=== PATIENT | female | born 1965 | race Caucasian/White ===

== ENCOUNTER 2022-12-20 17:53 | Emergency (ER) | payer MEDICARE, MEDICAID ==
[~2022-12-20] VITALS: Ht 152.4 cm; Wt 50.8 kg
[2022-12-20 17:54] VITALS: BP 127/66
[2022-12-20] MEDS ORDERED: CELE1CAP9 PO ×2 (18:07→18:28)
[2022-12-20] MEDS ORDERED: BUPR-69 PO (18:07)
[2022-12-20] MEDS ORDERED: TRAZ-257 PO (18:07)
[2022-12-20] MEDS ORDERED: DULO1CAP6 PO (18:07)
[2022-12-20] MEDS ORDERED: PANT40TA29 PO ×2 (18:07→18:28)
[2022-12-20] MEDS ORDERED: ALEN70TA82 PO ×2 (18:09→18:28)
[2022-12-20] MEDS ORDERED: TRAZ1TAB12 PO (18:28)
== END 2022-12-20 18:53 | disposition home or self-care (01) ==
LOC: M ED 17:53
DX: Z76.0 Encounter for issue of repeat prescription (principal); J44.9 Chronic obstructive pulmonary disease, unspecified; K21.9 Gastro-esophageal reflux disease without esophagitis; Z88.6 Allergy status to analgesic agent; Z79.83 Long term (current) use of bisphosphonates; Z79.1 Long term (current) use of non-steroidal anti-inflammatories (NSAID); Z79.899 Other long term (current) drug therapy

== ENCOUNTER → 2023-07-18 | Outpatient (REF) | payer MEDICARE, MEDICAID ==
[~2023-07-18] MED LIST: ALEN70TA82 PO; BUPR-69 PO; CELE0.09 PO; DULO1CAP6 PO; PANT40TA29 PO; TRAZ-257 PO; TRAZ1TAB12 PO
[2023-07-18 19:08] LABS: ALBUMIN 3.6 G/DL (3.2-5.2); ALKALINE PHOSPHATASE 97 U/L (46-116); ALT/SGPT 19 U/L (7.0-40); AST/SGOT 19 U/L (<34); BILIRUBIN,TOTAL 0.2 MG/DL (0.3-1.2); BLOOD UREA NITROGEN 10 MG/DL (9-23); CALCIUM LEVEL 9.2 MG/DL (8.5-10.1); CARBON DIOXIDE LEVEL 32 MMOL/L (20-31); CHLORIDE LEVEL 102 MMOL/L (98-107); CHOLESTEROL LEVEL 224 MG/DL (<200); CHOLESTEROL RISK RATIO 4.53 (<5); CREATININE FOR GFR 0.78 MG/DL (0.55-1.30); GLOMERULAR FILTRATION RATE > 60.0 (>51); GLUCOSE, FASTING 87 MG/DL (60-100); HDL CHOLESTEROL 49.4 MG/DL (>40); LDL CHOLESTEROL 143.2 MG/DL (<100); NON-HDL-C 174.6 MG/DL; POTASSIUM SERUM 4.7 MMOL/L (3.5-5.1); SODIUM LEVEL 140 MMOL/L (136-145); TRIGLYCERIDES LEVEL 157 MG/DL (<150)
[2023-07-18 19:10] LABS: TOTAL 25(OH) VITAMIN D 44.9 NG/ML (20.0-100.0)
[2023-07-18 19:16] LABS: HEMOGLOBIN A1c 5.1 % (4.0-6.0)
[2023-07-18 19:40] LABS: HEPATITIS C VIRUS ABY INDEX 0.05 INDEX (<0.8)
== END ==
LOC: M PLALAB 18:02
PROVIDERS: ATTEND Family Medicine
DX: Z13.6 Encounter for screening for cardiovascular disorders (principal); Z11.9 Encounter for screening for infectious and parasitic diseases, unspecified; M81.0 Age-related osteoporosis without current pathological fracture; Z79.899 Other long term (current) drug therapy

== ENCOUNTER → 2023-08-08 | Outpatient (CLI) | payer MEDICARE, MEDICAID | LOC: M WHC 16:04 | PROVIDERS: ATTEND Family Medicine | DX: Z12.31 Encounter for screening mammogram for malignant neoplasm of breast (principal); R92.323 Mammographic fibroglandular density, bilateral breasts ==

== ENCOUNTER → 2023-10-19 | Outpatient (REF) | payer MEDICARE, MEDICAID | LOC: M SFHCWAGY 18:01 | PROVIDERS: ATTEND Family Medicine | DX: Z12.4 Encounter for screening for malignant neoplasm of cervix (principal) | CPT/HCPCS: 87624; G0123 ==

== ENCOUNTER 2023-11-06 08:36 | Day surgery (SDC) | payer MEDICARE, MEDICAID ==
[~2023-11-06] VITALS: Ht 152.4 cm; Wt 50.8 kg
[~2023-11-06 08:36] MED LIST changes: +ACET-897 PO; +BUPR150T12 PO; +CALC1CAP34 PO; +FOLI400T5 PO; +PREVAGEN PO
[2023-11-06] MEDS: NS 1,000 ML IV ONE (08:54)
[2023-11-06] MEDS ORDERED: LIDOCAINE 2% 100MG/5ML SDV (FOR ANES.) As Ordered ONE (10:00)
[2023-11-06] MEDS ORDERED: propofoL 200 MG/20 ML VIAL As Ordered ONE (10:00)
[2023-11-06 10:48] VITALS: TEMP 97
[2023-11-06 11:04] VITALS: BP 101/50; O2SAT 98
== END 2023-11-06 11:08 | disposition home or self-care (01) ==
LOC: M OPP 08:36
PROVIDERS: ATTEND Internal Medicine Gastroenterology
DX: Z12.11 Encounter for screening for malignant neoplasm of colon (principal); K64.4 Residual hemorrhoidal skin tags; K64.8 Other hemorrhoids; K29.70 Gastritis, unspecified, without bleeding; K44.9 Diaphragmatic hernia without obstruction or gangrene; R13.10 Dysphagia, unspecified; F17.200 Nicotine dependence, unspecified, uncomplicated; Z79.1 Long term (current) use of non-steroidal anti-inflammatories (NSAID); Z79.83 Long term (current) use of bisphosphonates; Z79.899 Other long term (current) drug therapy; Z88.6 Allergy status to analgesic agent
CPT/HCPCS: 43239; 43249; 88305; G0121

== ENCOUNTER 2024-04-17 17:13 | Emergency (ER) | payer MEDICARE, MEDICAID ==
[~2024-04-17] VITALS: Ht 152.4 cm; Wt 53.6 kg
[2024-04-17] MEDS ORDERED: SUCR1TAB56 (17:37)
[2024-04-17 18:50] VITALS: BP 140/96; TEMP 96.9; O2SAT 99
== END 2024-04-17 19:43 | disposition left against medical advice (07) ==
LOC: M ED 17:13
DX: Z53.21 Procedure and treatment not carried out due to patient leaving prior to being seen by health care provider (principal)

== ENCOUNTER → 2024-12-19 | Outpatient (CLI) | payer MEDICARE, MEDICAID ==
[~2024-12-19] MED LIST changes: +SUCR1TAB56
== END ==
LOC: M WHC 14:26
PROVIDERS: ATTEND Registered Nurse
DX: Z12.31 Encounter for screening mammogram for malignant neoplasm of breast (principal); Z13.820 Encounter for screening for osteoporosis; R92.323 Mammographic fibroglandular density, bilateral breasts; M85.89 Other specified disorders of bone density and structure, multiple sites

== ENCOUNTER → 2024-12-31 | Outpatient (CLI) | payer MEDICARE, MEDICAID | LOC: M RAD 15:23 | PROVIDERS: ATTEND Registered Nurse | DX: R91.8 Other nonspecific abnormal finding of lung field (principal); F17.210 Nicotine dependence, cigarettes, uncomplicated ==

== ENCOUNTER → 2025-01-14 | Outpatient (CLI) | payer MEDICARE, MEDICAID ==
[2025-01-14 15:08] LABS: BASO # 0.1 10^3/uL (0.0-0.2); EOS # 0.2 10^3/uL (0.0-0.5); HEMATOCRIT 39.5 % (36.0-47.0); HEMOGLOBIN 12.7 g/dl (12.0-15.5); LYMPH # 1.9 10^3/uL (1.5-5.0); LYMPH % 33.1 % (24.0-44.0); MEAN CORPUSCULAR HEMOGLOBIN 30.5 pg (27.0-33.0); MEAN CORPUSCULAR HGB CONC 32.2 g/dl (32.0-36.5); MEAN CORPUSCULAR VOLUME 94.7 fl (80.0-96.0); MONO # 0.6 10^3/uL (0.0-0.8); MONO % 9.5 % (2.0-8.0); NEUTROPHILS % 52.2 % (36.0-66.0); PLATELET COUNT, AUTOMATED 269 10^3/uL (150-450); RED BLOOD COUNT 4.17 10^6/uL (4.00-5.40); WHITE BLOOD COUNT 5.8 10^3/uL (4.0-10.0)
[2025-01-14 15:23] LABS: ALBUMIN 3.5 G/DL (3.2-5.2); BILIRUBIN,TOTAL 0.3 MG/DL (0.3-1.2); CALCIUM LEVEL 9.5 MG/DL (8.3-10.6); CHOLESTEROL RISK RATIO 4.7 (<5); CREATININE FOR GFR 0.79 MG/DL (0.55-1.30); GLOMERULAR FILTRATION RATE 85.6 (>45); HDL CHOLESTEROL 54.2 MG/DL (>40); LDL CHOLESTEROL 180.8 MG/DL (<100); NON-HDL-C 200.8 MG/DL; POTASSIUM SERUM 3.9 MMOL/L (3.5-5.1); TOTAL PROTEIN 6.9 G/DL (5.7-8.2)
[2025-01-14 15:24] LABS: FREE T4 1.03 NG/DL (0.89-1.76)
[2025-01-14 15:25] LABS: THYROID STIMULATING HORMONE 1.676 uIU/ML (0.55-4.78)
== END ==
LOC: M WUC 13:06
PROVIDERS: ATTEND Registered Nurse
DX: Z00.00 Encounter for general adult medical examination without abnormal findings (principal); Z11.59 Encounter for screening for other viral diseases; M81.0 Age-related osteoporosis without current pathological fracture; Z79.899 Other long term (current) drug therapy; Z72.89 Other problems related to lifestyle
CPT/HCPCS: 36415; 80048; 80053; 80061; 82306; 83036; 84439; 84443; 85025; 86376; G0472

== ENCOUNTER → 2025-01-14 | Outpatient (CLI) | payer MEDICARE, MEDICAID ==
[2025-01-14 15:24] LABS: CALCIUM LEVEL 9.4 MG/DL (8.3-10.6); CREATININE FOR GFR 0.8 MG/DL (0.55-1.30); GLOMERULAR FILTRATION RATE 84.3 (>45); POTASSIUM SERUM 3.8 MMOL/L (3.5-5.1)
[2025-01-14 15:25] LABS: TOTAL 25(OH) VITAMIN D 59.8 NG/ML (20.0-100.0)
== END ==
LOC: M WUC 13:08
PROVIDERS: ATTEND Nurse Practitioner Family
DX: M81.0 Age-related osteoporosis without current pathological fracture (principal)

== ENCOUNTER 2025-04-07 07:40 | Day surgery (SDC) | payer MEDICARE, MEDICAID ==
[~2025-04-07] VITALS: Ht 154.9 cm; Wt 47.6 kg
[~2025-04-07 07:40] MED LIST changes: +GLYCOPYRROLATE INJ 0.2 MG/ML 2 ML VIAL As Ordered ONE; +PANT20TA6 PO; +ROSU10TA61 PO
[2025-04-07] MEDS ORDERED: LIDOCAINE 2% 100 MG/5 ML SDV (FOR ANES.) As Ordered ONE (08:42)
[2025-04-07] MEDS ORDERED: PHENYLephrine 500MCG 5ML (100MCG/ML) SYRINGE As Ordered ONE (09:40)
[2025-04-07 09:43] VITALS: TEMP 97.6
[2025-04-07 10:00] VITALS: BP 104/64; O2SAT 96
== END 2025-04-07 10:00 | disposition home or self-care (01) ==
LOC: M OPP 07:40
PROVIDERS: ATTEND Internal Medicine Gastroenterology
DX: K64.8 Other hemorrhoids (principal); K59.00 Constipation, unspecified; K44.9 Diaphragmatic hernia without obstruction or gangrene; K22.2 Esophageal obstruction; R13.10 Dysphagia, unspecified; Z88.8 Allergy status to other drugs, medicaments and biological substances; Z79.899 Other long term (current) drug therapy; J44.9 Chronic obstructive pulmonary disease, unspecified
CPT/HCPCS: 43249; 45378; J1596; J2371; J3010

== ENCOUNTER → 2025-04-08 | Outpatient (REF) | payer MEDICARE, MEDICAID ==
[~2025-04-08] MED LIST changes: -GLYCOPYRROLATE INJ 0.2 MG/ML 2 ML VIAL As Ordered ONE
[2025-04-08 18:22] LABS: Trichomonas vaginalis (AMP) NOT DETECTED (NEGATIVE)
[2025-04-08 18:47] LABS: GC DNA AMPLIFICATION NEGATIVE (NEGATIVE)
== END ==
LOC: M SFHCWAGY 16:51
PROVIDERS: ATTEND Nurse Practitioner Family
DX: R10.2 Pelvic and perineal pain (principal); Z11.3 Encounter for screening for infections with a predominantly sexual mode of transmission; Z72.89 Other problems related to lifestyle

== ENCOUNTER → 2025-04-16 | Outpatient (CLI) | payer MEDICARE, MEDICAID ==
[2025-04-16 14:26] LABS: BASO # 0.1 10^3/uL (0.0-0.2); BASO % 0.9 % (0.0-1.0); EOS # 0.1 10^3/uL (0.0-0.5); EOS % 2.2 % (0.0-3.0); LYMPH # 1.7 10^3/uL (1.5-5.0); LYMPH % 29.5 % (24.0-44.0); MONO # 0.5 10^3/uL (0.0-0.8); MONO % 8.8 % (2.0-8.0); NEUTROPHILS # 3.4 10^3/uL (1.5-8.5); NEUTROPHILS % 58.3 % (36.0-66.0); PLATELET COUNT, AUTOMATED 274 10^3/uL (150-450)
[2025-04-16 15:18] LABS: IRON (FE) 82.0 UG/DL (50-170)
[2025-04-16 15:19] LABS: ALT/SGPT 18.0 U/L (7.0-40); AST/SGOT 24.0 U/L (<34); CALCIUM LEVEL 9.2 MG/DL (8.3-10.6); CARBON DIOXIDE LEVEL 31.0 MMOL/L (20-31); CHLORIDE LEVEL 101.0 MMOL/L (98-107); CHOLESTEROL LEVEL 173.0 MG/DL (<200); CHOLESTEROL RISK RATIO 3.07 (<5); CREATININE FOR GFR 0.8 MG/DL (0.55-1.30); GLOMERULAR FILTRATION RATE 83.8 (>45); LDL CHOLESTEROL 97.7 MG/DL (<100); NON-HDL-C 116.7 MG/DL; PERCENT SATURATION 27.6 % (13.2-45.0); POTASSIUM SERUM 3.1 MMOL/L (3.5-5.1); SODIUM LEVEL 144.0 MMOL/L (136-145); TRIGLYCERIDES LEVEL 95.0 MG/DL (<150)
[2025-04-16 15:31] LABS: VITAMIN B12 LEVEL 967.0 PG/ML (211-911)
== END ==
LOC: M WUC 10:49
PROVIDERS: ATTEND Registered Nurse
DX: E78.2 Mixed hyperlipidemia (principal); R53.83 Other fatigue

== ENCOUNTER → 2025-06-10 | Outpatient (CLI) | payer MEDICARE, MEDICAID | LOC: M PLALAB 11:33 | PROVIDERS: ATTEND Surgery | DX: Z80.3 Family history of malignant neoplasm of breast (principal) ==

== ENCOUNTER → 2025-06-10 | Outpatient (REF) | payer MEDICARE, MEDICAID | LOC: M SFHCWAGY 14:57 | PROVIDERS: ATTEND Nurse Practitioner Family | DX: R10.2 Pelvic and perineal pain (principal) ==

== ENCOUNTER → 2025-07-20 | Outpatient (CLI) | payer MEDICARE, MEDICAID ==
[~2025-07-20] MED LIST changes: +HYDR-3364; +PROHANCE 279.3MG/ML 5ML VIAL ONE
== END ==
LOC: M PLAIMG 14:26
PROVIDERS: ATTEND Surgery
DX: R92.323 Mammographic fibroglandular density, bilateral breasts (principal); R59.0 Localized enlarged lymph nodes; Z80.3 Family history of malignant neoplasm of breast; Z91.89 Other specified personal risk factors, not elsewhere classified; R92.2 Inconclusive mammogram
CPT/HCPCS: A9576; C8908

== ENCOUNTER 2025-08-25 08:10 | Day surgery (SDC) | payer MEDICARE, MEDICAID ==
[~2025-08-25] VITALS: Ht 154.9 cm; Wt 46.6 kg
[~2025-08-25 08:10] MED LIST changes: +BIOT1CAP2 PO; -HYDR-3364; +HYDR-3364 PO; -PROHANCE 279.3MG/ML 5ML VIAL ONE; -ROSU10TA61 PO; +ROSU10TA90 PO
[2025-08-25] MEDS ORDERED: LIDOCAINE 2% 100 MG/5 ML SDV (FOR ANES.) As Ordered ONE (08:42)
[2025-08-25 08:58] VITALS: TEMP 97.2
[2025-08-25 09:29] VITALS: BP 107/53; O2SAT 97
== END 2025-08-25 09:31 | disposition home or self-care (01) ==
LOC: M OPP 08:10
PROVIDERS: ATTEND Internal Medicine Gastroenterology
DX: R13.10 Dysphagia, unspecified (principal); Z88.6 Allergy status to analgesic agent; Z88.8 Allergy status to other drugs, medicaments and biological substances; Z79.899 Other long term (current) drug therapy; J44.9 Chronic obstructive pulmonary disease, unspecified; F17.210 Nicotine dependence, cigarettes, uncomplicated

== ENCOUNTER → 2025-09-20 | Outpatient (REF) | payer MEDICARE, MEDICAID | LOC: M LAB REF 19:20 | PROVIDERS: ATTEND Physician Assistant | DX: R30.0 Dysuria (principal) ==